=== PATIENT | female | born 1950 | race Native Hawaiian/Other Pacific Islander ===

== ENCOUNTER 2019-01-07 13:21 | Outpatient (CLI) | payer OTHER ==
[2019-01-07 14:24] LABS: PLATELET COUNT 315 K/uL (152-353)
[2019-01-07 14:41] LABS: POTASSIUM 3.9 mmol/L (3.6-5.2)
== END 2019-01-07 19:33 | disposition home or self-care (01) ==
LOC: LABW 13:21
PROVIDERS: Internal Medicine Gastroenterology
DX: R19.4 Change in bowel habit (principal); K59.01 Slow transit constipation; K92.2 Gastrointestinal hemorrhage, unspecified; R10.31 Right lower quadrant pain; R10.32 Left lower quadrant pain
CPT/HCPCS: 36415; 80053; 82150; 82784; 83516; 83690; 84443; 85027

== ENCOUNTER 2019-02-09 12:35 | Outpatient (CLI) | payer OTHER | END 2019-02-09 23:02 | disposition home or self-care (01) | LOC: LABW 12:35 | DX: D64.9 Anemia, unspecified (principal) | CPT/HCPCS: 36415; 82607; 82728; 82746; 83540; 83550 ==

== ENCOUNTER 2019-10-08 10:08 | Outpatient (CLI) | payer OTHER | END 2019-10-08 10:36 | disposition short-term general hospital (02) | LOC: AMB 10:08 | DX: R10.84 Generalized abdominal pain (principal); R11.2 Nausea with vomiting, unspecified | CPT/HCPCS: A0425; A0427 ==

== ENCOUNTER 2022-04-06 09:11 | Outpatient (CLI) | payer OTHER | END 2022-04-06 19:19 | disposition home or self-care (01) | LOC: US 09:11 | PROVIDERS: ATTEND Internal Medicine Nephrology | DX: N18.30 Chronic kidney disease, stage 3 unspecified (principal) ==